=== PATIENT | male | born 1945 | race Caucasian/White ===

== ENCOUNTER 2019-11-10 12:19 | Outpatient (CLI) | payer MEDICARE, OTHER, SELFPAY ==
[2019-11-10 13:13] LABS: Basophils % 0.6 %; Eosinophils # 0.2 10^3/uL (0.0-0.8); Eosinophils % 3.3 %; Hematocrit 34.6 % (42.0-52.0); Hemoglobin 11.7 g/dL (11.7-16.6); Lymphocytes # 1.3 10^3/uL (0.8-4.8); Lymphocytes % 24.6 %; Mean Corpuscular HGB Conc 33.8 g/dL (30.0-36.0); Mean Corpuscular Hemoglobin 38.5 pg (28.0-34.0); Mean Corpuscular Volume 113.8 fL (80-94); Mean Platelet Volume 10.2 fL (7.4-10.4); Monocytes # 0.6 10^3/uL (0.2-0.9); Monocytes % 10.6 %; Neutrophils # 3.1 10^3/uL (1.8-7.7); Neutrophils % 60.1 %; Nucleated Red Blood Cells % 0 %; Platelet Count 176 10^3/cmm (130-400); Red Blood Count 3.04 10^6/uL (4.1-5.3); Red Cell Distribution Width 16.5 % (12.1-15.1); White Blood Count 5.2 10^3/uL (4.0-10.0)
[2019-11-10 14:24] LABS: Prostate Specific Antigen 0.07 ng/mL (0-4)
[2019-11-10 14:36] LABS: Alanine Aminotransferase 20 U/L (0-41); Alkaline Phosphatase 66 IU/L (40-130); Anion Gap 12.4 (5-19); Aspartate Amino Transferase 30 U/L (0-40); Blood Urea Nitrogen 14 mg/dL (8-23); Calcium 8.8 mg/dL (8.5-10.5); Carbon Dioxide 29 mmol/L (22-29); Chloride 103 mmol/L (98-107); Glucose 91 mg/dL (65-115); Osmolality Calculated 286 mOsm/kg (285-295); Potassium 4.4 mmol/L (3.5-5.1); Sodium 140 mmol/L (136-145); Total Bilirubin 0.4 mg/dL (0.15-1.2)
--- NOTE | 2019-11-10 17:36 | ONC FU_ITS ---
Dr. Daly follow up note Patient: Kurt De La Vega Unit #: [id number]: 1945 Dicatated By: Glenroy Daly M.D.Date of Visit:November 10, 2019 Onc Med Follow-up/Prog Note History of Present Illness: Mr. Kurt De La Vega, 74-year-old gentleman with history of prostate cancer diagnosed in 2016 underwent brachytherapy in [place] his PSA came down to 0.49 from 4.9 prior to treatment. 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 CBC done on 01/19/2017 showed white blood count 4.90 hemoglobin 13 crit 40.8 platelets 182,000 and MCV 114.2 normal 80-100 RBC 3.57 normal being 3.80- 5.80 MCH 36.4 normal being less than 34 CBC done on 02/13/2017 showed white blood count 4.57 hemoglobin 13.2 crit 40 MCV 112.3 MCH 37.1 RDW 15.6 and RBCs 3.56 Came for follow-up, denies any specific complaints, no fever or chills, no nausea or vomiting, no diarrhea constipation, no weight loss, appetite is good, no new bony pains, no hematuria or dysuria, no dysphagia., no peripheral numbness Medications: Aspirin 1 (81 mg) Tablet Oral daily, Giorgio/Mag 1 (200-100 mg) Tablet Oral daily, Co Q 10 1 (100 mg) Capsule Oral daily, [facility] Vitamin E 1 (400 Units) Capsule Oral daily, Fish Oil 1 (600 mg) Capsule Oral daily, Garlic 1 (500 mg) Tablet Oral daily, Ginkgo Biloba 1 (120 mg) Tablet Oral daily, Glucosamine Chond Complex/MSM 1 Tablet Oral daily, Milk Thistle 1 (300 mg) Capsule Oral daily, Niacin 1 (250 mg) Tablet Oral daily, Pravastatin Sodium 1 Tablet (of 80 mg) Oral daily, Propranolol HCl 1 Tablet (of 80 mg) Oral daily, Saw [place] (Serenoa repens) 1 (540 mg) Capsule Oral daily, Selenimin-200 1 (200 mcg) Tablet Oral daily, Vitamin C 2 (500 mg) Capsule Oral daily, Zetia 1 Tablet (of 10 mg) Oral daily, Zoloft 1 (100 mg) Tablet Oral daily Allergies: No Known Allergies. Review of Systems: Constitutional - Appetite is good and weight is stable. No fever, chills, hot flashes, or night sweats. Energy level is fair, ENMT - No sinus congestion/drainage. No mouth sores. No sore throat or difficulty swallowing, Hematologic/Lymphatic - No abnormal bruising or bleeding, Respiratory - No shortness of breath. No cough. No pleuritic pain or hemoptysis, Cardiovascular - No angina pain. No palpitations, Gastrointestinal - No nausea or vomiting. No heartburn or acid reflux. No diarrhea or constipation. No blood in the stool or black stools, Genitourinary (M) - No dysuria or hematuria. No urinary frequency. No urgency or incontinence, Musculoskeletal - No joint or bone pain, Neurologic - No headache or dizziness. No numbness/paresthesias or other focal neurologic symptoms, Psychiatric - No anxiety or depression. No insomnia. Vital Signs: Performed on November 10, 2019 14:44 Height - 66.00 in Weight - 201.8 lbs (HIGH) BSA - 2.01 sq.m BMI - 32.57 (HIGH) Temperature - 98.0 F (LOW) Pulse - 71 /min Respiration - 20 /min BP - 145/79 mm(hg) (HIGH) O2 Sat - 96 % Pain - 0 Performance Status: 0 - Fully active, able to carry on all predisease activities without restrictions. (ECOG) Physical Examination: ENMT - no mouth sores, chronic changes due to status post right radical neck dissection, Respiratory - Lungs are clear, Cardiovascular - Regular rate and rhythm of heart, Abdomen - soft, bowel tones present, Extremities - no visible edema. Lab/Imaging: Test performed on May 26, 2019 12:49 Folate, Serum 14.9 ng/mL Vitamin B12 838 pg/mL WBC 4.8 10 3/uL RBC 3.12 10 6/uL HGB 11.4 g/dL HCT 34.0 % MCV 109.0 fl MCH 36.5 pg MCHC 33.5 g/dl RDW 16.7 % Platelet Count 169 10 3/cmm MPV 9.8 fl Neutrophils 2.7 10 3/uL Lymphocytes 1.3 10 3/uL Monocytes 0.5 10 3/uL Eosinophils 0.2 10 3/uL Basophils 0.0 10 3/uL Neutrophil % 57.2 % Lymphocyte % 26.5 % Monocyte % 11.2 % Eosinophil % 3.6 % Basophils % 0.4 % PSA 0.06 ng/mL Impression: Macrocytic anemia ? Etiology possibilities include bone marrow response to chronic blood loss and/or mild hemolysis and/or medication induced and/orAnd spurious due to cold agglutinin causing clumping of blood cell or due to EDTA or delayed in simple testing.Or brachytherapy effect on bone marrow or hypothyroidism (h/o ca tongue in 2004) Normal B12 and folic acid level Prostrate cancer status post brachytherapy in [place] (2016) History of ca tongue diagnosed in 2004 status post dissection and right radical neck dissection CT scan of neck done on 06/10/2017 showed prior right submandibular gland dissection, no evidence of metastatic /recurrent disease Plan: Discussed with patient regarding his labs white blood count 5.2 hemoglobin 11.7 hematocrit 34.6 platelets 176,000 MCV 113.8 CMP within normal limit except creatinine 1.3 and PSA 0.07 Clinically, patient is doing well with no signs symptom suggestive of recurrence of prostrate cancer, PSA within normal range and stable. Persistent macrocytosis with a normal hemoglobin, etiology unclear could be multifactorial, will continue to monitor and return to clinic in 6 month with CBC and PSA Signed By: Glenroy Daly M.D. <<Signature on File>>
== END 2019-11-10 12:20 | disposition home or self-care (01) ==
LOC: ONCMED 12:30
PROVIDERS: PCP Nurse Practitioner Family; Visit Provider Internal Medicine Hematology & Oncology
DX: Z08 Encounter for follow-up examination after completed treatment for malignant neoplasm (principal); Z85.46 Personal history of malignant neoplasm of prostate; D53.9 Nutritional anemia, unspecified; Z85.89 Personal history of malignant neoplasm of other organs and systems; Z85.810 Personal history of malignant neoplasm of tongue
CPT/HCPCS: 36415; 80053; 84153; 85025; 99214

== ENCOUNTER 2019-11-22 08:27 | Outpatient (CLI) | payer MEDICARE, OTHER, SELFPAY ==
--- NOTE | 2019-11-22 08:40 | XR_ITS ---
WS: [id number] KNEE RIGHT TECHNIQUE: 3 views of the right knee CLINICAL INFORMATION: RIGHT KNEE PAIN COMPARISON: None. FINDINGS: Mild degenerative arthritis worse in the medial joint compartment. Moderate narrowing at the patellof emoral articulation with hypertrophic patella. Vascular calcification. Small suprapatellar effusion. XR/XR knee RT 3V* [id number] IMPRESSION: Mild degenerative arthritis medial compartment and moderate degenerative narrow ing patellofemoral articulation
--- NOTE | 2019-11-22 08:40 | XR_ITS ---
WS: [id number] ANKLE RIGHT TECHNIQUE: 3 views of the right ankle CLINICAL INFORMATION: RIGHT FOOT PAIN COMPARISON: None. FINDINGS: Normal anatomic alignment. Normal ankle mortise. Normal medial and lateral malleolus. Chronic well-co rticated tiny avulsion medial malleolus. Mild soft tissue edema. Vascular calcification. Pes planus. Plantar calcaneal spurring. Vascular calcification. XR/XR ankle RT min 3V* [id number] IMPRESSION: Pes planus with plantar calcaneal spurring
== END 2019-11-22 08:28 | disposition home or self-care (01) ==
LOC: RADWPI 08:31
PROVIDERS: Family Provider Nurse Practitioner Family; PCP Nurse Practitioner Family; Visit Provider Nurse Practitioner Family
DX: M79.671 Pain in right foot (principal); M25.561 Pain in right knee; M17.11 Unilateral primary osteoarthritis, right knee; M21.41 Flat foot [pes planus] (acquired), right foot; M77.31 Calcaneal spur, right foot
CPT/HCPCS: 73562; 73610